=== PATIENT | female | born 2000 | race Caucasian/White ===

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

== ENCOUNTER 2022-05-06 12:41 | Emergency (ER) | payer MEDICAID, OTHER ==
[~2022-05-06] VITALS: Ht 157.5 cm; Wt 68.0 kg
[2022-05-06] MEDS ORDERED: IBUPROFEN 600MG TABLET PO ONE (15:00)
[2022-05-06] MEDS ORDERED: FAMOTIDINE 20MG TABLET PO ONE (15:00)
[2022-05-06] MEDS ORDERED: FAMO-135 MT (16:49)
[2022-05-06 17:09] VITALS: BP 111/77
[2022-05-06] MEDS ORDERED: FAMOTIDINE 20MG TABLET PO NR (17:15)
[2022-05-06] MEDS ORDERED: IBUPROFEN 600MG TABLET PO NR (17:15)
== END 2022-05-06 17:10 | disposition home or self-care (01) ==
LOC: ER 12:41
DX: R10.12 Left upper quadrant pain (principal)
CPT/HCPCS: 71045; 81025; 99283; Z7610

== ENCOUNTER 2023-05-21 10:07 | Emergency (ER) | payer OTHER ==
[~2023-05-21] VITALS: Ht 167.6 cm; Wt 68.0 kg
[~2023-05-21 10:07] MED LIST: FAMO-135 MT
[2023-05-21 10:16] VITALS: O2SAT 99
[2023-05-21] MEDS ORDERED: PECT2.8L4 MM (10:26)
[2023-05-21 10:57] VITALS: BP 113/71; PULSE 81; RESP 19; TEMP 99
== END 2023-05-21 11:09 | disposition home or self-care (01) ==
LOC: ER 10:07
DX: B34.9 Viral infection, unspecified (principal); J02.9 Acute pharyngitis, unspecified
CPT/HCPCS: 99281; 99282

== ENCOUNTER 2024-09-25 19:23 | Emergency (ER) | payer OTHER ==
[~2024-09-25] VITALS: Ht 160 cm; Wt 56.7 kg
[~2024-09-25 19:23] MED LIST changes: +PECT2.8L4 MM
[2024-09-25 19:32] VITALS: O2SAT 100
[2024-09-25] MEDS: METHYLPREDNISOLONE SOD SUCC 125MG/2ML (ACT-O-VIAL) IM ONE (20:35)
[2024-09-25] MEDS ORDERED: DOXY100T28 MT (21:00)
[2024-09-25] MEDS ORDERED: DIPH25CA83 MT (21:00)
[2024-09-25] MEDS ORDERED: HYDR28.485 TOP (21:00)
[2024-09-25 21:43] VITALS: BP 109/65; PULSE 55; RESP 14; TEMP 36.9; O2SAT 100
== END 2024-09-25 21:43 | disposition home or self-care (01) ==
LOC: ER 19:23
DX: L03.114 Cellulitis of left upper limb (principal); L08.9 Local infection of the skin and subcutaneous tissue, unspecified; Z79.52 Long term (current) use of systemic steroids
CPT/HCPCS: 99283; 96372; J2919